=== PATIENT | male | born 1965 | race Caucasian/White ===

== ENCOUNTER 2017-06-09 16:12 | Emergency (ER) | payer BC ==
[2017-06-09 16:47] VITALS: BP 125/89
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
--- NOTE | 2017-06-09 18:27 | RAD ---
Indication: Left rib injury. 3 views of left wrist demonstrates fracture of the left eighth rib posterior laterally. Minimal displacement is noted. The major of the left ribs are unremarkable. 2 views of the chest demonstrate no pneumothorax. IMPRESSION: Minimally displaced fracture of left eighth rib posterior laterally. No pneumothorax is noted.
== END 2017-06-09 18:34 | disposition home or self-care (01) ==
LOC: UCCORT 16:12
DX: S22.32XA Fracture of one rib, left side, initial encounter for closed fracture (principal); S40.812A Abrasion of left upper arm, initial encounter; S80.212A Abrasion, left knee, initial encounter; S80.211A Abrasion, right knee, initial encounter; W10.9XXA Fall (on) (from) unspecified stairs and steps, initial encounter; Y93.9 Activity, unspecified; Y92.9 Unspecified place or not applicable; F41.9 Anxiety disorder, unspecified; E66.9 Obesity, unspecified; Z88.2 Allergy status to sulfonamides; Z91.041 Radiographic dye allergy status
CPT/HCPCS: 99202; G0463

== ENCOUNTER 2018-06-28 10:34 | Emergency (ER) | payer BC, OTHER ==
[2018-06-28] MEDS ORDERED: Tetracaine 0.5% OPTH.SOL 15ML* BTL RIGHT EYE ONE (11:13)
[2018-06-28] MEDS ORDERED: Fluorescein Sod TOPICAL 0.6* 0.6 MG TEST OPHTHALMIC ONE (11:13)
[2018-06-28 11:17] VITALS: BP 128/79
--- NOTE | 2018-06-28 11:18 | UC ---
Eye Complaint HPI - HPI Summary HPI Summary: 53-year-old male presents with foreign body sensation in his right eye since yesterday afternoon. 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 He states that there is no discomfort with his eyes open but that when he closes his eyes he has this sensation. He has no complaints of changes in vision and occasionally will get tearing. He reports that his tetanus shot is up-to-date. He does not wear contacts or wear glasses. - History of Current Complaint Stated Complaint: RT EYE CONCERN Time Seen by Provider: 06/28/18 11:07 Hx Obtained From: Patient - Allergies/Home Medications Allergies/Adverse Reactions: Allergies Allergy/AdvReac Type Severity Reaction Status Date / Time Iodinated Contrast- Oral and Allergy Swelling Verified 06/28/18 11:20 IV Dye Throat, tightening, hives Sulfa (Sulfonamide Allergy Rash And Verified 06/28/18 11:20 Antibiotics) Itching Home Medications: Home Medications Acetaminophen [Tylenol Extra Strength] 1,000 mg PO ONCE PRN 06/28/18 [History Confirmed 06/28/18] Calcium Carbonate CHEW TAB* [Tums*] 1,000 mg PO BID PRN 06/28/18 [History Confirmed 06/28/18] Omeprazole CAP* [Prilosec CAP* 20 MG] 20 mg PO DAILY PRN 06/28/18 [History Confirmed 06/28/18] PMH/Surg Hx/FS Hx/Imm Hx Previously Healthy: Yes - Surgical History Surgical History: None - Family History Known Family History: Positive: Hypertension Negative: Cardiac Disease, Diabetes - Social History Occupation: Employed Full-time Alcohol Use: Occasionally Substance Use Type: None Smoking Status (MU): Never Smoked Tobacco Have You Smoked in the Last Year: No Review of Systems Constitutional: Negative Eyes: Other - Foreign body sensation without tenderness, redness, positive for intermittent tearing ENT: Negative Respiratory: Negative Cardiovascular: Negative All Other Systems Reviewed And Are Negative: Yes Physical Exam Triage Information Reviewed: Yes Appearance: Well-Appearing, No Pain Distress Vital Signs Reviewed: Yes Eyes: Positive: Conjunctiva Clear, Other: - Less than 1 mm rust ring present just left and superior visual axis in the right eye. Occasional tearing. Eyelids everted without any foreign body seen. Improved with tetracaine. No fluorescein uptake. ENT: Positive: Normal ENT inspection Neck: Positive: Supple Respiratory: Positive: Lungs clear Cardiovascular: Positive: RRR Musculoskeletal Exam: Normal Neurological Exam: Normal Skin Exam: Normal Procedures - Eye Procedure Right Alcaine Drops Administered: Yes Eye FB Removal: removal w/ needle - attempted removal of metal foreign body with rust ring. Partially removed. Eye Irrigated w/ Saline (ccs): 5 Eye Complaint Course/Dx - Course Course Of Treatment: Metallic foreign body with rust ring was identified in the cornea of the right eye. I attempted removal with blunt edge needle after tetracaine drops. I was able to remove a small portion but not remove it fully. Discussed the case with Dr. Roberts's office -- he will see the patient at 1:30 in the ophthalmology office. - Differential Dx/Diagnosis Provider Diagnoses: Right eye corneal metallic foreign body with rust ring Discharge - Sign-Out/Discharge Documenting (check all that apply): Patient Departure All imaging exams completed and their final reports reviewed: No Studies - Discharge Plan Condition: Improved Disposition: HOME Prescriptions: Erythromycin OPTH OINT* [Erythromycin 0.5% OPTH OINT*] 1 applic RIGHT EYE TID # 1 ophth.oint Naproxen [Naproxen 500 mg tab] 500 mg PO BID PRN #10 tablet.dr ARECHIGA Reason: Pain Patient Education Materials: Eye Foreign Body (ED) Referrals: Ottoniel Roberts MD [Medical Doctor] - Migue Phillip DO [Primary Care Provider] - Additional Instructions: You have an appointment with Dr. Roberts the eye doctor at 1:30 today. Go to this appointment on [facility]. Return if worse, new symptoms or other concerns. - Billing Disposition and Condition Condition: IMPROVED Disposition: Home - Attestation Statements Document Initiated by Scribe: Tona
[2018-06-28] MEDS ORDERED: Tetracaine 0.5% OPTH.SOL 4 ML* 1 DROP BTL ONE (11:23)
[2018-06-28] MEDS ORDERED: Fluorescein Sodium TOPICAL* 1 MG TEST STRIP ONE (11:23)
[2018-06-28] MEDS ORDERED: Tetan/Diph/Pertus SYR(Tdap)* 0.5 ML SYR(BOOSTRIX) use SYR IM ONE (11:35)
== END 2018-06-28 12:05 | disposition home or self-care (01) ==
LOC: UCCORT 10:34
DX: T15.01XA Foreign body in cornea, right eye, initial encounter (principal); S00.251A Superficial foreign body of right eyelid and periocular area, initial encounter; Z88.1 Allergy status to other antibiotic agents; Z91.041 Radiographic dye allergy status
CPT/HCPCS: 90471; 90715; 99212; A9270-GY; G0463